=== PATIENT | male | born 1945 | race Caucasian/White ===

== ENCOUNTER 2016-06-12 18:34 | Emergency (ER) | payer BC, OTHER ==
[~2016-06-12] VITALS: Ht 177.8 cm; Wt 113.4 kg
[~2016-06-12 18:34] MED LIST: AMLO1CAP5 PO; CLOP75TA2 PO; GLIP10TA11 PO; HYDR25TA4 PO; INSU100V9 SQ; SIMV20TA6 PO; SITA1TAB10 PO; [UNRECOGNIZED DRUG - CODE] PO
[2016-06-12 18:43] VITALS: BP_SYST 155
--- NOTE | 2016-06-12 19:00 | NUR ---
Patient to ER bed 04 to gown for evaluation. Side rails up. Report given to Rn Sane.
--- NOTE | 2016-06-12 19:05 | NUR ---
MD Shabazz at bedside examining pt
[2016-06-12] MEDS ORDERED: ONDANSETRON 4 MG ODT TAB PO ONE (19:15)
[2016-06-12] MEDS ORDERED: methylPREDNISolone SOD SUCC/PF 62.5 MG/ML VIAL IM ONE (19:15)
[2016-06-12] MEDS ORDERED: MORPHINE SULFATE 10 MG/ML VIAL IM ONE (19:15)
--- NOTE | 2016-06-12 19:15 | NUR ---
Pt presents to ED with c/o lower back pain, started today, 10/14 per pt. Pt denies injury, ambulatory, gait stable. A&Ox4, denies SOB or chestpain, denies N/V/D. Will continue to monitor
[2016-06-12 20:15] VITALS: BP_SYST 142
--- NOTE | 2016-06-12 20:15 | NUR ---
Patient given written and verbal discharge instructions and verbalizes understanding. ER MD Shabazz discussed with patient the results and treatment provided. Patient in stable condition. ID arm band removed. Rx of motrin, norco, and prednisone given. Patient educated on pain management and to follow up with PMD. Pain Scale 0/10. Opportunity for questions provided and answered.
== END 2016-06-12 20:15 | disposition home or self-care (01) ==
LOC: SED 18:34
DX: M54.5 Low back pain (principal); I10 Essential (primary) hypertension; E11.9 Type 2 diabetes mellitus without complications; Z98.890 Other specified postprocedural states; Z85.9 Personal history of malignant neoplasm, unspecified; Z79.4 Long term (current) use of insulin
CPT/HCPCS: 96372; 99284; J2270; J2930; Q0162

== ENCOUNTER 2016-06-19 17:02 | Inpatient (IN) | payer OTHER, BC ==
[~2016-06-19] VITALS: Ht 177.8 cm; Wt 112.9 kg
[2016-06-19 17:02] VITALS: BP_SYST 145
[~2016-06-19 17:02] MED LIST changes: +DEXAMETHASONE SOD PHOSPHATE 4 MG/ML VIAL ONE; +KETAMINE HCL 500 MG/10 ML VIAL ONE; +KETOROLAC TROMETHAMINE 30 MG VIAL ONE; +MIDAZOLAM HCL 5 MG/5 ML VIAL ONE; +NS 1000 ML BAG IV ONE; +NS IRRIG SOLN 5000 ML IR ONE; +ONDANSETRON HCL 4 MG/2 ML VIAL ONE; +PROPOFOL 200MG/ 20ML VIAL (DIPRIVAN) IV ONE; +ROCURONIUM BROMIDE 10 MG/ML (ZEMURON) ONE; +SEVOFLURANE 15 MIN GAS INH ONE; +fentaNYL CITRATE 250 MCG/5 ML AMP ONE
[2016-06-19] MEDS ORDERED: NACL 0.9% 1,000 ML IV SCH (17:15)
[2016-06-19 17:44] LABS: CALCIUM 8.2 mg/dL (8.4-11.0); CREATININE 2.58 mg/dL (0.55-1.30); POTASSIUM 3.7 mmol/L (3.5-5.1)
[2016-06-19 17:52] LABS: ALBUMIN 2.2 g/dL (3.4-4.8); TOTAL BILIRUBIN 0.9 mg/dL (0.0-1.0)
[2016-06-19 17:57] LABS: HEMOGLOBIN 14.3 g/dL (14.0-18.0); MEAN CORPUSCULAR HEMOGLOBIN 29 pg (27-31); MEAN CORPUSCULAR HGB CONC 33 % (32-36); MEAN CORPUSCULAR VOLUME 88 fL (79.0-98.0); PLATELET COUNT (AUTO) 115 K/uL (130-430); RED BLOOD CELL COUNT(AUTO) 4.91 MIL/uL (4.2-6.2); RED CELL DISTRIBUTION WIDTH 13.6 % (9.0-15.0); WHITE BLOOD COUNT (AUTO) 23.8 K/uL (4.8-10.8)
[2016-06-19] MEDS ORDERED: cefTRIAXone 1 GM IVPB PREMIX 50 ML IV ONE (18:00)
[2016-06-19 18:06] LABS: INR 1.1 (0.80-1.20); PROTHROMBIN TIME 11.8 SECS (9.5-12.5)
[2016-06-19 18:29] LABS: BAND % (MANUAL) 38 % (0-6); BASOPHILS % (MANUAL) 0 % (0-2); EOSINOPHILS % (MANUAL) 0 % (0-7); LYMPHOCYTES % (MANUAL) 4 % (20-46); METAMYELOCYTES % 2 % (0-0); MONOCYTES % (MANUAL) 3 % (0-11); MYELOCYTES % 1 % (0-0)
[2016-06-19] MEDS ORDERED: INSU100V32 SUBCUT (18:29)
[2016-06-19] MEDS ORDERED: PRAV20TA PO (18:29)
[2016-06-19] MEDS ORDERED: METF-510 PO (18:29)
[2016-06-19] MEDS ORDERED: INSU100V11 SQ (18:54)
[2016-06-19] MEDS ORDERED: INSU100V PO (18:54)
[2016-06-19 19:00] VITALS: BP_SYST 155
[2016-06-19 19:04] LABS: BILIRUBIN,URINE NEGATIVE (NEGATIVE); BLOOD, URINE 1+ (NEGATIVE); CLARITY/URINE CLEAR (CLEAR); COLOR,URINE YELLOW (YELLOW); GLUCOSE,URINE 3+ (NEGATIVE); KETONES,URINE TRACE (NEGATIVE); LEUKOCYTE ESTERASE ,URINE TRACE (NEGATIVE); NITRITE, URINE NEGATIVE (NEGATIVE); PH,URINE 5.5 (5.0-8.0); PROTEIN URINE 1+ (NEGATIVE); UROBILINOGEN,URINE 0.2 (0.2-1.0)
[2016-06-19 19:20] LABS: BACTERIA,URINE FEW /HPF (None Seen); WBC,URINE 0-3 /HPF (0-3)
[2016-06-19 19:21] LABS: MUCUS,URINE None Seen /LPF (None Seen)
[2016-06-19 20:00] VITALS: BP_SYST 155
[2016-06-19] MEDS: NACL 0.9% 1,000 ML IV SCH (23:48)
[2016-06-20] VITALS (7 sets, daily range): BP systolic 117–155
[2016-06-20 06:06] LABS: BASOPHILS % (AUTO) 0.1 % (0.0-2.0); EOSINOPHILS # (AUTO) 0.1 K/uL (0.0-0.4); EOSINOPHILS % (AUTO) 0.3 % (0.0-4.0); HEMATOCRIT 36.8 % (36-54); HEMOGLOBIN 12.7 g/dL (14.0-18.0); LYMPHOCYTES # (AUTO) 1.2 K/uL (1.0-5.5); LYMPHOCYTES % (AUTO) 5.5 % (20.5-51.5); MEAN CORPUSCULAR HEMOGLOBIN 30 pg (27-31); MEAN CORPUSCULAR HGB CONC 35 % (32-36); MEAN CORPUSCULAR VOLUME 87 fL (79.0-98.0); MONOCYTES # (AUTO) 1.5 K/uL (0.0-1.0); MONOCYTES % (AUTO) 6.7 % (1.7-9.3); NEUTROPHILS # (AUTO) 19.4 K/uL (1.8-7.7); NEUTROPHILS % (AUTO) 87.4 % (40.0-70.0); PLATELET COUNT (AUTO) 95 K/uL (130-430); RED BLOOD CELL COUNT(AUTO) 4.23 MIL/uL (4.2-6.2); RED CELL DISTRIBUTION WIDTH 13.7 % (9.0-15.0); WHITE BLOOD COUNT (AUTO) 22.2 K/uL (4.8-10.8)
[2016-06-20 06:16] LABS: ALBUMIN 1.6 g/dL (3.4-4.8); CALCIUM 7.4 mg/dL (8.4-11.0); CREATININE 2.38 mg/dL (0.55-1.30); POTASSIUM 3.5 mmol/L (3.5-5.1); TOTAL BILIRUBIN 0.7 mg/dL (0.0-1.0); TOTAL PROTEIN, SERUM 5.7 g/dL (6.4-8.3)
[2016-06-20] MEDS: INSULIN ASPART 100 UNITS/ML, 10 ML VIAL SUBCUT SCH ×3 (06:22→17:00)
[2016-06-20] MEDS ORDERED: INSULIN LISPRO 30 UNIT SQ SCH (07:00)
[2016-06-20] MEDS: ASPIRIN 325 MG TABLET (ECOTRIN) PO SCH (08:22)
[2016-06-20] MEDS: NACL 0.9% 1,000 ML IV SCH ×2 (08:24→18:30)
[2016-06-20] MEDS ORDERED: BENAZEPRIL PO SCH (09:00)
[2016-06-20] MEDS ORDERED: BENAZEPRIL HCL 10 MG TABLET (LOTENSIN) PO SCH (09:00)
[2016-06-20] MEDS ORDERED: amLODIPine BESYLATE 5 MG TABLET PO SCH (09:00)
[2016-06-20] MEDS ORDERED: AMLODIPINE PO SCH (09:00)
[2016-06-20] MEDS ORDERED: HYDROcodone/ACETAMIN 10-325 MG TAB PO PRN (13:30)
[2016-06-20] MEDS ORDERED: COMMUNICATION ORDER XX ONE (15:00)
[2016-06-20] MEDS ORDERED: NORFLURANE/HFC 245FA 103.5 ML SPRAY TP ONE (15:15)
[2016-06-20 15:59] LABS: BODY FLUID CRYSTALS NO CRYSTALS SEEN (None Seen)
[2016-06-20] MEDS ORDERED: ROCURONIUM BROMIDE 10 MG/ML (ZEMURON) ONE (16:00)
[2016-06-20] MEDS ORDERED: MIDAZOLAM HCL 5 MG/5 ML VIAL ONE (16:00)
[2016-06-20] MEDS ORDERED: KETOROLAC TROMETHAMINE 30 MG VIAL ONE (16:00)
[2016-06-20] MEDS ORDERED: SEVOFLURANE 15 MIN GAS INH ONE (16:00)
[2016-06-20] MEDS ORDERED: PROPOFOL 200MG/ 20ML VIAL (DIPRIVAN) IV ONE (16:00)
[2016-06-20] MEDS ORDERED: NS IRRIG SOLN 5000 ML IR ONE (16:00)
[2016-06-20] MEDS ORDERED: fentaNYL CITRATE 250 MCG/5 ML AMP ONE (16:00)
[2016-06-20] MEDS ORDERED: DEXAMETHASONE SOD PHOSPHATE 4 MG/ML VIAL ONE (16:00)
[2016-06-20] MEDS ORDERED: KETAMINE HCL 500 MG/10 ML VIAL ONE (16:00)
[2016-06-20] MEDS ORDERED: ONDANSETRON HCL 4 MG/2 ML VIAL ONE (16:00)
[2016-06-20] MEDS ORDERED: VANCOMYCIN HCL 1,250 MG in NS 250 ML IV SCH (17:00)
[2016-06-20] MEDS ORDERED: LR 1,000 ML IV SCH ×2 (21:04→21:10)
[2016-06-20] MEDS ORDERED: HYDROmorphone 1 MG INJ. 1 MG/ML AMPUL IVP PRN ×2 (21:15)
[2016-06-20] MEDS ORDERED: HYDROmorphone 2 MG/ML VIAL IVP PRN ×4 (21:15)
[2016-06-20] MEDS ORDERED: MEPERIDINE HCL/PF 25 MG/ML DISP.SYRIN IVP PRN ×2 (21:15)
[2016-06-20] MEDS ORDERED: LevALBUTEROL HCL 1.25 MG/0.5 ML *CONC.* VIAL.NEB (XOPENEX CONC.) INH ONE (22:14)
[2016-06-20] MEDS ORDERED: LevALBUTEROL HCL 1.25 MG/0.5 ML *CONC.* VIAL.NEB (XOPENEX CONC.) INH SCH (22:15)
[2016-06-20] MEDS ORDERED: MILK OF MAGNESIA 30 ML UDC PO PRN (22:15)
[2016-06-21] MEDS: NACL 0.9% 1,000 ML IV SCH ×3 (02:16→23:32)
[2016-06-21 03:56] VITALS: BP_SYST 121
[2016-06-21] MEDS: INSULIN ASPART 100 UNITS/ML, 10 ML VIAL SUBCUT SCH ×3 (06:15→17:14)
[2016-06-21 07:03] LABS: BASOPHILS % (AUTO) 0.1 % (0.0-2.0); EOSINOPHILS % (AUTO) 0.1 % (0.0-4.0); HEMATOCRIT 37.9 % (36-54); HEMOGLOBIN 12.8 g/dL (14.0-18.0); LYMPHOCYTES # (AUTO) 0.7 K/uL (1.0-5.5); MEAN CORPUSCULAR HEMOGLOBIN 30 pg (27-31); MEAN CORPUSCULAR HGB CONC 34 % (32-36); MEAN CORPUSCULAR VOLUME 88 fL (79.0-98.0); MONOCYTES # (AUTO) 0.4 K/uL (0.0-1.0); MONOCYTES % (AUTO) 2.5 % (1.7-9.3); NEUTROPHILS # (AUTO) 16.3 K/uL (1.8-7.7); PLATELET COUNT (AUTO) 128 K/uL (130-430); RED BLOOD CELL COUNT(AUTO) 4.31 MIL/uL (4.2-6.2); RED CELL DISTRIBUTION WIDTH 14.3 % (9.0-15.0); WHITE BLOOD COUNT (AUTO) 17.4 K/uL (4.8-10.8)
[2016-06-21 07:18] LABS: ALBUMIN 1.8 g/dL (3.4-4.8); CALCIUM 7.2 mg/dL (8.4-11.0); CREATININE 2.68 mg/dL (0.55-1.30); PHOSPHORUS 4.7 mg/dL (2.7-4.5); TOTAL BILIRUBIN 0.5 mg/dL (0.0-1.0); TOTAL PROTEIN, SERUM 6.2 g/dL (6.4-8.3)
[2016-06-21 08:07] LABS: NEUTROPHILS % (AUTO) 93.3 % (40.0-70.0)
[2016-06-21 08:31] VITALS: BP_SYST 105
[2016-06-21] MEDS: ASCORBIC ACID 500 MG TABLET PO SCH ×2 (08:36→20:47)
[2016-06-21] MEDS: MULTIVITAMINS TAB 1 TABLET PO SCH (08:36)
[2016-06-21] MEDS: ASPIRIN 325 MG TABLET (ECOTRIN) PO SCH (08:36)
[2016-06-21 08:58] LABS: URINE SODIUM, RANDOM 25 mmol/L (40-220)
[2016-06-21] MEDS ORDERED: *CUBICIN 6 MG/KG Q48H/PHARMACY XX PRN (10:45)
[2016-06-21 12:00] VITALS: BP_SYST 113
[2016-06-21] MEDS ORDERED: NS IV SCH (12:00)
[2016-06-21] MEDS ORDERED: DAPTOMYCIN IV SCH (12:00)
[2016-06-21 15:22] VITALS: BP_SYST 114
[2016-06-21] MEDS: amLODIPine BESYLATE 10 MG TABLET PO SCH (17:08)
[2016-06-21] MEDS ORDERED: INSULIN ASPART 100 UNITS/ML, 10 ML VIAL SUBCUT ONE ×2 (17:30→21:15)
[2016-06-21 20:00] VITALS: BP_SYST 112
[2016-06-21] MEDS: SENNOSIDES 8.6 MG TABLET PO SCH (20:47)
[2016-06-22 00:03] VITALS: BP_SYST 141
[2016-06-22 03:56] VITALS: BP_SYST 118
[2016-06-22] MEDS: INSULIN ASPART 100 UNITS/ML, 10 ML VIAL SUBCUT SCH ×3 (06:01→17:30)
[2016-06-22] MEDS ORDERED: IOHEXOL 0 ML IV ONE (07:58)
[2016-06-22] MEDS ORDERED: LR 1,000 ML IV SCH (08:08)
[2016-06-22] MEDS ORDERED: HYDROmorphone 2 MG/ML VIAL IVP PRN ×2 (08:15)
[2016-06-22] MEDS ORDERED: HYDROmorphone 1 MG INJ. 1 MG/ML AMPUL IVP PRN (08:15)
[2016-06-22] MEDS ORDERED: LevALBUTEROL HCL 1.25 MG/0.5 ML *CONC.* VIAL.NEB (XOPENEX CONC.) INH ONE (08:15)
[2016-06-22] MEDS ORDERED: MEPERIDINE HCL/PF 25 MG/ML DISP.SYRIN IVP PRN (08:15)
[2016-06-22] MEDS: MULTIVITAMINS TAB 1 TABLET PO SCH (09:34)
[2016-06-22] MEDS: ASCORBIC ACID 500 MG TABLET PO SCH ×2 (09:34→21:28)
[2016-06-22] MEDS: amLODIPine BESYLATE 10 MG TABLET PO SCH (09:34)
[2016-06-22] MEDS: ASPIRIN 325 MG TABLET (ECOTRIN) PO SCH (09:47)
[2016-06-22 09:59] VITALS: BP_SYST 126
[2016-06-22 12:18] VITALS: BP_SYST 135
[2016-06-22 16:40] VITALS: BP_SYST 105
[2016-06-22 20:00] VITALS: BP_SYST 124
[2016-06-22] MEDS: NACL 0.9% 1,000 ML IV SCH (20:30)
[2016-06-22] MEDS: SENNOSIDES 8.6 MG TABLET PO SCH (21:28)
[2016-06-23 00:33] VITALS: BP_SYST 127
[2016-06-23] MEDS: NACL 0.9% 1,000 ML IV SCH ×3 (01:12→16:30)
[2016-06-23 04:43] VITALS: BP_SYST 150
[2016-06-23 06:21] LABS: BASOPHILS % (AUTO) 0.2 % (0.0-2.0); EOSINOPHILS % (AUTO) 0.2 % (0.0-4.0); HEMATOCRIT 36.8 % (36-54); HEMOGLOBIN 12.4 g/dL (14.0-18.0); LYMPHOCYTES # (AUTO) 1.6 K/uL (1.0-5.5); LYMPHOCYTES % (AUTO) 9.5 % (20.5-51.5); MEAN CORPUSCULAR HEMOGLOBIN 30 pg (27-31); MEAN CORPUSCULAR HGB CONC 34 % (32-36); MEAN CORPUSCULAR VOLUME 89 fL (79.0-98.0); MONOCYTES # (AUTO) 0.8 K/uL (0.0-1.0); MONOCYTES % (AUTO) 5.1 % (1.7-9.3); NEUTROPHILS # (AUTO) 14.1 K/uL (1.8-7.7); PLATELET COUNT (AUTO) 271 K/uL (130-430); RED BLOOD CELL COUNT(AUTO) 4.13 MIL/uL (4.2-6.2); RED CELL DISTRIBUTION WIDTH 14.6 % (9.0-15.0); WHITE BLOOD COUNT (AUTO) 16.5 K/uL (4.8-10.8)
[2016-06-23] MEDS: INSULIN ASPART 100 UNITS/ML, 10 ML VIAL SUBCUT SCH ×3 (06:34→17:37)
[2016-06-23 06:47] LABS: CALCIUM 8.4 mg/dL (8.4-11.0); CREATININE 1.76 mg/dL (0.55-1.30); POTASSIUM 4.6 mmol/L (3.5-5.1); TOTAL BILIRUBIN 0.6 mg/dL (0.0-1.0); TOTAL PROTEIN, SERUM 6.7 g/dL (6.4-8.3)
[2016-06-23 08:21] VITALS: BP_SYST 141
[2016-06-23] MEDS: amLODIPine BESYLATE 10 MG TABLET PO SCH (08:58)
[2016-06-23] MEDS: ASCORBIC ACID 500 MG TABLET PO SCH (08:58)
[2016-06-23] MEDS: MULTIVITAMINS TAB 1 TABLET PO SCH (08:58)
[2016-06-23] MEDS: ASPIRIN 325 MG TABLET (ECOTRIN) PO SCH (08:58)
[2016-06-23 11:42] VITALS: BP_SYST 141
[2016-06-23] MEDS: AMPICILLIN SODIUM 2 GM in NS 100 ML IV SCH ×2 (11:52→17:17)
[2016-06-23 15:30] VITALS: BP_SYST 128
[2016-06-23] MEDS ORDERED: MAGNESIUM SULFATE 50 ML IV ONE (16:45)
[2016-06-23 18:03] VITALS: BP_SYST 128
== END 2016-06-23 19:00 | DRG 559 ==
LOC: SED 17:02 → STU 18:54 → SMU 06-22 22:43
PROVIDERS: ADMIT Specialist; ATTEND Specialist
PROC: 0S9C40Z Drainage of Right Knee Joint with Drainage Device, Percutaneous Endoscopic Approach (ICD-10-PCS; 2016-06-20)
PROC: 0SBC4ZX Excision of Right Knee Joint, Percutaneous Endoscopic Approach, Diagnostic (ICD-10-PCS; 2016-06-20)
PROC: 0S9C3ZX Drainage of Right Knee Joint, Percutaneous Approach, Diagnostic (ICD-10-PCS; principal; 2016-06-20 20:30)
PROC: 0T778DZ Dilation of Left Ureter with Intraluminal Device, Via Natural or Artificial Opening Endoscopic (ICD-10-PCS; 2016-06-22)
DX: T84.53XA Infection and inflammatory reaction due to internal right knee prosthesis, initial encounter (principal); A40.9 Streptococcal sepsis, unspecified; E43 Unspecified severe protein-calorie malnutrition; N13.2 Hydronephrosis with renal and ureteral calculous obstruction; N17.9 Acute kidney failure, unspecified; M00.9 Pyogenic arthritis, unspecified; E11.65 Type 2 diabetes mellitus with hyperglycemia; E66.9 Obesity, unspecified; E78.2 Mixed hyperlipidemia; I25.10 Atherosclerotic heart disease of native coronary artery without angina pectoris; Z96.651 Presence of right artificial knee joint; Y83.1 Surgical operation with implant of artificial internal device as the cause of abnormal reaction of the patient, or of later complication, without mention of misadventure at the time of the procedure; N40.0 Benign prostatic hyperplasia without lower urinary tract symptoms; M65.9 Synovitis and tenosynovitis, unspecified; M25.461 Effusion, right knee; I12.9 Hypertensive chronic kidney disease with stage 1 through stage 4 chronic kidney disease, or unspecified chronic kidney disease; E11.22 Type 2 diabetes mellitus with diabetic chronic kidney disease; N18.2 Chronic kidney disease, stage 2 (mild); F17.200 Nicotine dependence, unspecified, uncomplicated; Z79.4 Long term (current) use of insulin; Q63.1 Lobulated, fused and horseshoe kidney; Z95.5 Presence of coronary angioplasty implant and graft; Z68.35 Body mass index [BMI] 35.0-35.9, adult; Y92.89 Other specified places as the place of occurrence of the external cause
CPT/HCPCS: 36415; 71010; 71020-TC; 73565; 74000-TC; 76000; 80053; 81000-TC; 82570-TC; 82962; 83605; 83735-TC; 83880; 83935-TC; 84100-TC; 84302-TC; 84484; 85007; 85025; 85027; 85379; 85610-TC; 85651-TC; 85730-TC; 86140; 87040-TC; 87070-TC; 87075-TC; 87081; 87086; 87186-TC; 87205-TC; 89051-TC; 89060-TC; 93005; 94010; 94640; 96365; 99285; C1769; C2625; J0290; J0696; J0878; J1100; J1815; J1885; J2250; J2405; J2704; J3010; J3370; J7030; J7050; J7060; Q9967

== ENCOUNTER 2019-08-29 11:17 | Inpatient (IN) | payer OTHER, BC ==
[~2019-08-29] VITALS: Ht 177.8 cm; Wt 119.7 kg
[~2019-08-29 11:17] MED LIST changes: -AMLO1CAP5 PO; +AMLO5TAB4 PO; +ASPI-1153 PO; -CLOP75TA2 PO; +CYAN100010 PO; -DEXAMETHASONE SOD PHOSPHATE 4 MG/ML VIAL ONE; +FLUC200T PO; -GLIP10TA11 PO; -INSU100V9 SQ; +INSU500I SQ; -KETAMINE HCL 500 MG/10 ML VIAL ONE; -KETOROLAC TROMETHAMINE 30 MG VIAL ONE; -MIDAZOLAM HCL 5 MG/5 ML VIAL ONE; -NS 1000 ML BAG IV ONE; -NS IRRIG SOLN 5000 ML IR ONE; -ONDANSETRON HCL 4 MG/2 ML VIAL ONE; +OXYC-133 PO; +PRAV20TA PO; -PROPOFOL 200MG/ 20ML VIAL (DIPRIVAN) IV ONE; -ROCURONIUM BROMIDE 10 MG/ML (ZEMURON) ONE; -SEVOFLURANE 15 MIN GAS INH ONE; -SIMV20TA6 PO; -SITA1TAB10 PO; +VITD2000 PO; -[UNRECOGNIZED DRUG - CODE] PO; -fentaNYL CITRATE 250 MCG/5 ML AMP ONE
[2019-08-29 11:31] VITALS: BP_SYST 145
--- NOTE | 2019-08-29 11:50 | NUR ---
BROUGHT BACK TO BED #1 AND REPORT GIVEN TO BRANDON
--- NOTE | 2019-08-29 12:01 | NUR ---
DR SOTO AT BEDSIDE FOR EVALUATION
--- NOTE | 2019-08-29 12:05 | NUR ---
Chastity martin in [facility] - 08/29/19 at 1542 by SDEDTD XENA LEWIS at bedside examining patient.
--- NOTE | 2019-08-29 12:05 | NUR ---
Pt came to ER for facial swelling and L pain. Pt resting in gurney, no pain at this time, AO4, face does not appear swollen upon assessment.
[2019-08-29 12:50] LABS: BASOPHILS % (AUTO) 0.3 % (0.0-2.0); EOSINOPHILS # (AUTO) 0.1 K/uL (0.0-0.4); EOSINOPHILS % (AUTO) 0.4 % (0.0-4.0); HEMATOCRIT 42.5 % (36-54); HEMOGLOBIN 13.7 g/dL (14.0-18.0); LYMPHOCYTES # (AUTO) 1.4 K/uL (1.0-5.5); LYMPHOCYTES % (AUTO) 11.3 % (20.5-51.5); MEAN CORPUSCULAR HEMOGLOBIN 30 pg (27-31); MEAN CORPUSCULAR HGB CONC 32 % (32-36); MEAN CORPUSCULAR VOLUME 92 fL (79.0-98.0); MONOCYTES # (AUTO) 1.1 K/uL (0.0-1.0); MONOCYTES % (AUTO) 9.3 % (1.7-9.3); NEUTROPHILS # (AUTO) 9.5 K/uL (1.8-7.7); NEUTROPHILS % (AUTO) 78.7 % (40.0-70.0); PLATELET COUNT (AUTO) 194 K/uL (130-430); RED BLOOD CELL COUNT(AUTO) 4.64 MIL/uL (4.2-6.2); RED CELL DISTRIBUTION WIDTH 14.8 % (9.0-15.0)
[2019-08-29 13:00] LABS: ANION GAP 12 (5-15); CALCIUM 8.5 mg/dL (8.4-11.0); CHLORIDE 97 mmol/L (98-107); CREATININE 2.62 mg/dL (0.55-1.30); POTASSIUM 4.5 mmol/L (3.5-5.1); SODIUM SERUM 132 mmol/L (136-145); UREA NITROGEN, BLOOD 43 mg/dL (8-21)
[2019-08-29] MEDS ORDERED: IBUPROFEN 600 MG TABLET PO ONE (13:00)
[2019-08-29 13:16] LABS: ALANINE AMINOTRANSFERASE 30 U/L (12-78); ALBUMIN 3.4 g/dL (3.4-4.8); ASPARTATE AMINOTRANSFERASE 21 U/L (10-37); TOTAL BILIRUBIN 0.4 mg/dL (0.0-1.0)
[2019-08-29 13:20] LABS: GLUCOSE 405 mg/dL (70-99)
[2019-08-29] MEDS ORDERED: INSULIN REGULAR, HUMAN 10 UNITS/0.1 ML INJ IVP ONE (13:30)
[2019-08-29] MEDS ORDERED: NACL 0.9% 1,000 ML IV ONE (13:30)
[2019-08-29] MEDS ORDERED: LEVOFLOXACIN 500 MG/D5W 100 ML IV ONE (13:45)
[2019-08-29] MEDS ORDERED: NACL 0.9% 2,000 ML IV ONE (14:00)
[2019-08-29] MEDS ORDERED: OXYCODONE/ACETAMINOPHEN *10*mg/325 mg TABLET PO PRN (14:15)
[2019-08-29] MEDS ORDERED: DEXTROSE 50% JECT 50 ML DISP.SYRIN IVP PRN (14:15)
[2019-08-29 14:34] LABS: BILIRUBIN,URINE NEGATIVE (NEGATIVE); COLOR,URINE YELLOW (YELLOW); GLUCOSE,URINE TRACE (NEGATIVE); KETONES,URINE NEGATIVE (NEGATIVE); LEUKOCYTE ESTERASE ,URINE NEGATIVE (NEGATIVE); NITRITE, URINE NEGATIVE (NEGATIVE); PH,URINE 5.5 (5.0-8.0); PROTEIN URINE NEGATIVE (NEGATIVE); UROBILINOGEN,URINE 0.2 (0.2-1.0)
[2019-08-29] MEDS ORDERED: RIVA10TA PO (14:36)
[2019-08-29] MEDS ORDERED: NOR10 PO (14:36)
[2019-08-29 14:40] LABS: BLOOD, URINE TRACE (NEGATIVE); CLARITY/URINE SLIGHTLY HAZY (CLEAR)
--- NOTE | 2019-08-29 14:53 | NUR ---
Patient will be admitted to care of DR LEAL. Admitted to MS unit. Will go to room 116B. Belongings list completed. Complete and up to date summary report printed. SBAR report to be given at bedside with opportunity for questions.
[2019-08-29] MEDS ORDERED: FLUCONAZOLE 100 mg/ NS 50 ML IV SCH (15:00)
--- NOTE | 2019-08-29 15:00 | NUR ---
ADMISSION NOTE Received patient from ER via deangelo, received report from ER/ RN. Patient admitted with diagnosis of SEPSIS/CELLULITIS . Patient oriented to hospital routine, call light, toileting and safety-patient verbalized understanding.
--- NOTE | 2019-08-29 15:06 | NUR ---
CONSULTATION PAGED REASON FOR CONSULTATION:SEPSIS WAS CONSULT CALLED?Y PERSON WHO WAS NOTIFIED:CAROLINE CONSULTING PHYSICIAN:DENIA CUMMINGS PRODUCTION MATERIAL COORDINATOR SPECIALTY:INFECTIOUS DISEASE PRODUCTION MATERIAL COORDINATOR PHONE NUMBER:[phone] ORDERING PHYSICIAN:PAMELA CHE
[2019-08-29 15:16] VITALS: BP_SYST 140
[2019-08-29] MEDS: NACL 0.9% 1,000 ML IV SCH ×2 (15:28→23:40)
[2019-08-29] MEDS: INSULIN REGULAR, HUMAN 100 UNITS/ML, 10 ML VIAL (humuLIN R) SUBCUT PRN ×2 (16:33→22:26)
[2019-08-29] MEDS ORDERED: ACYCLOVIR 400 MG TABLET PO ONE (16:45)
[2019-08-29] MEDS ORDERED: TAMSULOSIN HCL 0.4 MG CAP PO ONE (16:45)
[2019-08-29] MEDS ORDERED: ZOLPIDEM TARTRATE 5 MG TABLET PO PRN (17:00)
[2019-08-29] MEDS ORDERED: ACETAMINOPHEN 325 MG TABLET PO PRN (17:00)
[2019-08-29] MEDS ORDERED: RIVAROXABAN 15 MG TABLET PO SCH (18:00)
[2019-08-29] MEDS: PIPERACILLIN/TAZO 2.25G/DEX-IS 50 ML IV SCH ×2 (18:57→23:40)
[2019-08-29 20:00] VITALS: BP_SYST 120
[2019-08-29] MEDS: LACTOBACILLUS RHAMNOSUS GG 1 CAP CAPSULE PO SCH (21:00)
[2019-08-29] MEDS ORDERED: ENOXAPARIN SODIUM 30 MG/0.3 ML SYRINGE SUBCUT SCH (21:00)
[2019-08-29] MEDS: DOCUSATE SODIUM 250 MG CAPSULE PO SCH (21:00)
[2019-08-29 21:17] LABS: BACTERIA,URINE FEW /HPF (None Seen); MUCUS,URINE 1+ /LPF (None Seen); RBC,URINE 0-3 /HPF (0-3)
[2019-08-29] MEDS: ACYCLOVIR 400 MG TABLET PO SCH (22:11)
[2019-08-30] VITALS: BP_SYST 124
[2019-08-30] MEDS: MORPHINE 4 MG/ML INJ. SYRINGE IVP PRN ×2 (00:24→06:17)
[2019-08-30] MEDS: PIPERACILLIN/TAZO 2.25G/DEX-IS 50 ML IV SCH ×2 (06:05→11:37)
[2019-08-30] MEDS: ACYCLOVIR 400 MG TABLET PO SCH ×2 (06:05→13:57)
[2019-08-30] MEDS: INSULIN REGULAR, HUMAN 100 UNITS/ML, 10 ML VIAL (humuLIN R) SUBCUT PRN ×2 (06:11→11:35)
[2019-08-30 07:15] LABS: BASOPHILS % (AUTO) 0.3 % (0.0-2.0); EOSINOPHILS # (AUTO) 0.1 K/uL (0.0-0.4); EOSINOPHILS % (AUTO) 0.9 % (0.0-4.0); HEMATOCRIT 37.5 % (36-54); HEMOGLOBIN 12.4 g/dL (14.0-18.0); LYMPHOCYTES # (AUTO) 1.1 K/uL (1.0-5.5); LYMPHOCYTES % (AUTO) 10.6 % (20.5-51.5); MEAN CORPUSCULAR HEMOGLOBIN 30 pg (27-31); MEAN CORPUSCULAR HGB CONC 33 % (32-36); MEAN CORPUSCULAR VOLUME 92 fL (79.0-98.0); MONOCYTES # (AUTO) 1.1 K/uL (0.0-1.0); MONOCYTES % (AUTO) 10.8 % (1.7-9.3); NEUTROPHILS # (AUTO) 7.8 K/uL (1.8-7.7); NEUTROPHILS % (AUTO) 77.4 % (40.0-70.0); PLATELET COUNT (AUTO) 156 K/uL (130-430); RED BLOOD CELL COUNT(AUTO) 4.07 MIL/uL (4.2-6.2); RED CELL DISTRIBUTION WIDTH 14.4 % (9.0-15.0); WHITE BLOOD COUNT (AUTO) 10.1 K/uL (4.8-10.8)
--- NOTE | 2019-08-30 07:40 | NUR ---
REPORT RECEIVED FROM MARY MORRISON. PT IS AAOX4. LEFT FACIAL SWELLING OBSERVED AREA IS RED AND WARM TO THE TOUCH. IV IS ON THE LEFT HAND 22G RUNNING NS @100. CALL LIGHT IS WITHIN REACH.
[2019-08-30 07:50] LABS: ALANINE AMINOTRANSFERASE 23 U/L (12-78); ALBUMIN 2.8 g/dL (3.4-4.8); ANION GAP 9 (5-15); ASPARTATE AMINOTRANSFERASE 18 U/L (10-37); CALCIUM 8.1 mg/dL (8.4-11.0); CHLORIDE 97 mmol/L (98-107); CREATININE 2.13 mg/dL (0.55-1.30); FREE T4 (FREE THYROXINE) 1.1 ng/dl (0.8-1.5); POTASSIUM 4.4 mmol/L (3.5-5.1); SODIUM SERUM 130 mmol/L (136-145); THYROID STIMULATING HORMONE 2.14 uIu/mL (0.36-3.74); TOTAL BILIRUBIN 0.5 mg/dL (0.0-1.0); UREA NITROGEN, BLOOD 40 mg/dL (8-21)
[2019-08-30 07:59] LABS: GLUCOSE 437 mg/dL (70-99)
[2019-08-30 08:00] VITALS: BP_SYST 113
[2019-08-30] MEDS ORDERED: INSULIN REGULAR, HUMAN 100 UNITS/ML, 10 ML VIAL SUBCUT ONE ×2 (08:30→11:15)
--- NOTE | 2019-08-30 08:30 | NUR ---
VENOUS BS IS 430. DR. LEAL MADE AWARE. ORDERS RECEIVED
[2019-08-30] MEDS: DOCUSATE SODIUM 250 MG CAPSULE PO SCH (08:44)
[2019-08-30] MEDS: LACTOBACILLUS RHAMNOSUS GG 1 CAP CAPSULE PO SCH (08:45)
[2019-08-30] MEDS ORDERED: CHOLECALCIFEROL (VITAMIN D3) 2,000 UNIT TABLET PO SCH (09:00)
[2019-08-30] MEDS ORDERED: amLODIPine BESYLATE 5 MG TABLET PO SCH (09:00)
[2019-08-30] MEDS ORDERED: CYANOCOBALAMIN 1000 mCg TABLET PO SCH (09:00)
[2019-08-30] MEDS ORDERED: TAMSULOSIN HCL 0.4 MG CAP PO SCH (09:00)
[2019-08-30] MEDS ORDERED: ASPIRIN 81 MG TABLET(ECOTRIN) PO SCH (09:00)
[2019-08-30] MEDS ORDERED: ATORVASTATIN 10 MG TABLET PO SCH (09:00)
[2019-08-30] MEDS ORDERED: FLUCONAZOLE 200 MG TABLET (DIFLUCAN) PO SCH (09:00)
[2019-08-30] MEDS: NACL 0.9% 1,000 ML IV SCH (10:21)
--- NOTE | 2019-08-30 10:39 | NUR ---
Nutrition Update Suhail Scale 17 noted. Pt admitted for sepsis, cellulitis Diet: [facility] BMI: 37.9 kg/m2 RD to follow per nutrition care standards.
[2019-08-30 11:17] LABS: BILIRUBIN,URINE NEGATIVE (NEGATIVE); BLOOD, URINE TRACE (NEGATIVE); CLARITY/URINE CLEAR (CLEAR); COLOR,URINE YELLOW (YELLOW); GLUCOSE,URINE 2+ (NEGATIVE); KETONES,URINE NEGATIVE (NEGATIVE); LEUKOCYTE ESTERASE ,URINE NEGATIVE (NEGATIVE); NITRITE, URINE NEGATIVE (NEGATIVE); PH,URINE 5.5 (5.0-8.0); PROTEIN URINE NEGATIVE (NEGATIVE); UROBILINOGEN,URINE 0.2 (0.2-1.0)
[2019-08-30 11:23] LABS: BACTERIA,URINE FEW /HPF (None Seen); RBC,URINE 0-3 /HPF (0-3); WBC,URINE 0-3 /HPF (0-3)
--- NOTE | 2019-08-30 11:30 | NUR ---
CURRENT BS IS 412. DR. LEAL MADE AWARE IN THE NURSES STATION. 30 UNITS OF INSULIN GIVEN. WILL REASSESS
[2019-08-30 12:30] VITALS: BP_SYST 114
--- NOTE | 2019-08-30 12:36 | NUR ---
SPOKE W/ DR. BYRNE. IS IN THE HOSPITAL AND WILL SEE THE PT MOMENTARILY
--- NOTE | 2019-08-30 12:45 | NUR ---
Keith LIMON IS W/ THE PT AT THE BEDSIDE
[2019-08-30] MEDS ORDERED: cefTRIAXone 1 GM in D5W 50 ML IV SCH (14:00)
--- NOTE | 2019-08-30 14:24 | NUR ---
AMA: Patient does not wish to proceed with medical care recommended by AND Keith LIMON. Patient given information related to possible complications, up to and including , which could occur as a result of leaving hospital at this time. Patient verbalizes understanding of risks involved leaving against medical advice. Patient has signed AMA form. PT REFUSED TO HAVE BS RECHECKED
[2019-08-30] MEDS ORDERED: LINEZOLID 300 ML IV SCH (15:00)
--- NOTE | 2019-08-30 15:37 | NUR ---
Pipe Coverer: met with pt. to conduct a DCPA. RN ER went to pts. room to meet with him. His bed was empty so RN ER spoke to Ric Fenton who informed her that pt. left AMA around 2;20pm. RN ER thanked her and informed the PAULINE Epps.
[2019-08-30] MEDS ORDERED: INSULIN GLARGINE 100 UNITS/ML 10 ML VIAL SUBCUT SCH (21:00)
== END 2019-08-30 14:20 | disposition left against medical advice (07) | DRG 871 ==
LOC: SED 11:17 → SMU 13:54
PROVIDERS: ADMIT Internal Medicine; ATTEND Internal Medicine
DX: A41.9 Sepsis, unspecified organism (principal); N17.0 Acute kidney failure with tubular necrosis; E87.2 Acidosis; L03.211 Cellulitis of face; N39.0 Urinary tract infection, site not specified; B02.9 Zoster without complications; E11.65 Type 2 diabetes mellitus with hyperglycemia; E66.9 Obesity, unspecified; E11.22 Type 2 diabetes mellitus with diabetic chronic kidney disease; I12.9 Hypertensive chronic kidney disease with stage 1 through stage 4 chronic kidney disease, or unspecified chronic kidney disease; N18.9 Chronic kidney disease, unspecified; E78.5 Hyperlipidemia, unspecified; N40.0 Benign prostatic hyperplasia without lower urinary tract symptoms; Z86.711 Personal history of pulmonary embolism; Z86.718 Personal history of other venous thrombosis and embolism; Z88.1 Allergy status to other antibiotic agents; Z79.01 Long term (current) use of anticoagulants; Z79.82 Long term (current) use of aspirin; Z79.4 Long term (current) use of insulin; Z79.899 Other long term (current) drug therapy; Z85.9 Personal history of malignant neoplasm, unspecified; I25.2 Old myocardial infarction
CPT/HCPCS: 36415; 70486-TC; 71045; 76770; 80053; 81000-TC; 82962; 83036; 83605; 84439; 84443-TC; 85025; 87040-TC; 87086; 96365; 96375; 99291; J0696; J1450; J1815; J1956; J2020; J2270; J2543; J7030; J7060

== ENCOUNTER 2021-03-10 11:06 | Emergency (ER) | payer OTHER, BC ==
[~2021-03-10] VITALS: Ht 177.8 cm; Wt 78.9 kg
[~2021-03-10 11:06] MED LIST changes: -AMLO5TAB4 PO; -ASPI-1153 PO; +ASPI-1393 PO; -FLUC200T PO; +NOR10 PO; +RIVA10TA PO
[2021-03-10 11:19] VITALS: BP_SYST 143
--- NOTE | 2021-03-10 11:30 | NUR ---
Pt placed in tent at this time
--- NOTE | 2021-03-10 11:32 | NUR ---
Pt brought by self, A&Ox4, pt presents to ER with cough/ congestion and bodyaches, O2 95%, skin pink and warm, cap refill <3, VSS, respirations even and unlabored.
[2021-03-10] MEDS ORDERED: ONDA-8 TL (12:29)
[2021-03-10 13:00] VITALS: BP_SYST 125
--- NOTE | 2021-03-10 13:00 | NUR ---
Patient given written and verbal discharge instructions and verbalizes understanding. ER MD discussed with patient the results and treatment provided. Patient in stable condition. ID arm band removed. Rx of Zofran given. Patient educated on pain management and to follow up with PMD. Pain Scale 2/10. Opportunity for questions provided and answered. Medication side effect fact sheet provided.
== END 2021-03-10 13:00 | disposition home or self-care (01) ==
LOC: SED 11:06
DX: U07.1 COVID-19 (principal); E11.9 Type 2 diabetes mellitus without complications; I10 Essential (primary) hypertension; Z88.1 Allergy status to other antibiotic agents
CPT/HCPCS: 36415; 71045; 93005; 99285

== ENCOUNTER 2021-12-15 10:40 | Emergency (ER) | payer BC, OTHER ==
[~2021-12-15] VITALS: Ht 177.8 cm; Wt 122.5 kg
[~2021-12-15 10:40] MED LIST changes: +ONDA-8 TL
[2021-12-15 11:00] VITALS: BP_SYST 105
[2021-12-15] MEDS: HYDROcodone/ACETAMIN 5-325 MG TAB (NORCO/ VICODIN) PO ONE (11:30)
[2021-12-15] MEDS ORDERED: TRAM50TA PO (12:51)
[2021-12-15] MEDS ORDERED: CEPH-548 PO (12:51)
[2021-12-15 13:25] VITALS: BP_SYST 105
[2021-12-15] MEDS: LIDOCAINE 1% 10 MG/ML, 20 ML MDV INJ ONE (13:31)
== END 2021-12-15 13:25 | disposition home or self-care (01) ==
LOC: SED 10:40
DX: L02.416 Cutaneous abscess of left lower limb (principal); R22.41 Localized swelling, mass and lump, right lower limb; E11.9 Type 2 diabetes mellitus without complications; I10 Essential (primary) hypertension; Z79.4 Long term (current) use of insulin; Z88.1 Allergy status to other antibiotic agents; Z79.899 Other long term (current) drug therapy
CPT/HCPCS: 99284; 10060; 82962; 73590; J2001

== ENCOUNTER 2021-12-17 09:04 | Emergency (ER) | payer BC, OTHER ==
[~2021-12-17] VITALS: Ht 177.8 cm; Wt 108.9 kg
[~2021-12-17 09:04] MED LIST changes: +CEPH-548 PO; +TRAM50TA PO
--- NOTE | 2021-12-17 09:04 | NUR ---
BROUGHT BACK TO BED #6 AND TRIAGED. REPORT GIVEN TO KAYLEEN
[2021-12-17 09:05] VITALS: BP_SYST 114
--- NOTE | 2021-12-17 09:10 | NUR ---
Pt bib self from home to ER CC left leg wound. wheeping with clear fluids to the lateral calf. afebrile denies pain aaox4. denies sob pedal pulses present <3sec cap refill.
--- NOTE | 2021-12-17 09:15 | NUR ---
ER at bedside examining patient.
[2021-12-17] MEDS ORDERED: HYDROcodone/ACETAMIN 5-325 MG TAB (NORCO/ VICODIN) PO ONE (09:30)
[2021-12-17] MEDS ORDERED: SULF1TAB48 PO (09:31)
--- NOTE | 2021-12-17 09:44 | NUR ---
Patient given written and verbal discharge instructions and verbalizes understanding. ER MD discussed with patient the results and treatment provided. Patient in stable condition. ID arm band removed. Rx of Bactrim given. Patient educated on pain management and to follow up with PMD. Opportunity for questions provided and answered. Medication side effect fact sheet provided.
--- NOTE | 2021-12-17 09:53 | NUR ---
Note mario in EDM - 12/17/21 at 0958 by HANG Pt bib self from home to ER CC left leg wound. wheeping with clear fluids to the lateral calf. afebrile denies pain aaox4. denies sob pedal pulses present <3sec cap refill.
== END 2021-12-17 09:44 | disposition home or self-care (01) ==
LOC: SED 09:04
DX: L03.116 Cellulitis of left lower limb (principal); R22.42 Localized swelling, mass and lump, left lower limb; E11.9 Type 2 diabetes mellitus without complications; I10 Essential (primary) hypertension; Z88.1 Allergy status to other antibiotic agents; Z79.899 Other long term (current) drug therapy
CPT/HCPCS: 99283

== ENCOUNTER 2022-05-08 10:29 | Inpatient (IN) | payer OTHER, BC ==
[~2022-05-08] VITALS: Ht 177.8 cm; Wt 112.5 kg
[~2022-05-08 10:29] MED LIST changes: +SULF1TAB48 PO
[2022-05-08 10:42] VITALS: BP_SYST 115
[2022-05-08 11:30] LABS: HEMATOCRIT 46.2 % (36-54); HEMOGLOBIN 14.5 g/dL (14.0-18.0); MEAN CORPUSCULAR HEMOGLOBIN 31 pg (27-31); MEAN CORPUSCULAR HGB CONC 31 % (32-36); MEAN CORPUSCULAR VOLUME 98 fL (79.0-98.0); PLATELET COUNT (AUTO) 163 K/uL (130-430); RED BLOOD CELL COUNT(AUTO) 4.74 MIL/uL (4.2-6.2); RED CELL DISTRIBUTION WIDTH 14.8 % (9.0-15.0)
[2022-05-08 11:40] LABS: WHITE BLOOD COUNT (AUTO) 22.4 K/uL (4.8-10.8)
[2022-05-08 12:36] LABS: ATYPICAL LYMPHOCYTES % 0 % (0-0); BAND % (MANUAL) 10 % (0-6); BASOPHILS % (MANUAL) 0 % (0-2); EOSINOPHILS % (MANUAL) 0 % (0-7); LYMPHOCYTES % (MANUAL) 7 % (20-46); MONOCYTES % (MANUAL) 7 % (0-11)
[2022-05-08 12:49] LABS: ALANINE AMINOTRANSFERASE 45 U/L (12-78); ALBUMIN 1.4 g/dL (3.4-4.8); ASPARTATE AMINOTRANSFERASE 25 U/L (10-37); TOTAL BILIRUBIN 0.5 mg/dL (0.0-1.0)
[2022-05-08 12:52] LABS: ANION GAP 21 (5-15); CHLORIDE 82 mmol/L (98-107)
[2022-05-08 12:53] LABS: CALCIUM 9.1 mg/dL (8.4-11.0); CREATININE 3.25 mg/dL (0.55-1.30); UREA NITROGEN, BLOOD 36 mg/dL (8-21)
[2022-05-08 12:57] LABS: GLUCOSE 502 mg/dL (70-99)
[2022-05-08 14:53] LABS: BILIRUBIN,URINE NEGATIVE (NEGATIVE); BLOOD, URINE 3+ (NEGATIVE); CLARITY/URINE CLEAR (CLEAR); COLOR,URINE YELLOW (YELLOW); GLUCOSE,URINE 3+ (NEGATIVE); KETONES,URINE 1+ (NEGATIVE); LEUKOCYTE ESTERASE ,URINE NEGATIVE (NEGATIVE); NITRITE, URINE NEGATIVE (NEGATIVE); PH,URINE 5.5 (5.0-8.0); PROTEIN URINE NEGATIVE (NEGATIVE); UROBILINOGEN,URINE 0.2 (0.2-1.0)
[2022-05-08] MEDS ORDERED: PIPERACILLIN/TAZOBACTAM 3.375 GM/VIAL (ZOSYN) IV ONE ×2 (14:53→22:59)
[2022-05-08] MEDS: PIPERACILLIN/TAZO 3.375 GM in NS 50 ML IV SCH ×2 (15:00→23:07)
[2022-05-08 15:07] LABS: BACTERIA,URINE FEW /HPF (None Seen); MUCUS,URINE None Seen /LPF (None Seen); RBC,URINE NONE SEEN /HPF (0-3); WBC,URINE 0-3 /HPF (0-3)
[2022-05-08] MEDS ORDERED: RIVA10TA PO (15:25)
[2022-05-08] MEDS ORDERED: ASPI-1155 PO (15:25)
[2022-05-08] MEDS ORDERED: HYDR25TA4 PO (15:25)
[2022-05-08] MEDS ORDERED: BENA-6 PO (15:25)
[2022-05-08] MEDS ORDERED: PRAV20TA59 PO (15:25)
[2022-05-08] MEDS ORDERED: DULA1.5P SQ (15:25)
[2022-05-08] MEDS ORDERED: INSU100V7 SUBCUT (15:25)
[2022-05-08] MEDS: traMADol HCL HCL 50 MG TABLET (ULTRAM) PO PRN (20:09)
[2022-05-09 08:09] LABS: BASOPHILS % (AUTO) 0.2 % (0.0-2.0); HEMATOCRIT 41.9 % (36-54); HEMOGLOBIN 13.9 g/dL (14.0-18.0); LYMPHOCYTES # (AUTO) 0.6 K/uL (1.0-5.5); LYMPHOCYTES % (AUTO) 3.5 % (20.5-51.5); MEAN CORPUSCULAR HEMOGLOBIN 31 pg (27-31); MEAN CORPUSCULAR HGB CONC 33 % (32-36); MEAN CORPUSCULAR VOLUME 93 fL (79.0-98.0); MONOCYTES # (AUTO) 1.1 K/uL (0.0-1.0); NEUTROPHILS # (AUTO) 14.4 K/uL (1.8-7.7); NEUTROPHILS % (AUTO) 89.3 % (40.0-70.0); PLATELET COUNT (AUTO) 111 K/uL (130-430); RED CELL DISTRIBUTION WIDTH 14.1 % (9.0-15.0)
[2022-05-09 08:19] LABS: WHITE BLOOD COUNT (AUTO) 16.1 K/uL (4.8-10.8)
[2022-05-09 08:58] LABS: ANION GAP 14 (5-15); CALCIUM 8.4 mg/dL (8.4-11.0); CHLORIDE 88 mmol/L (98-107); CREATININE 2.05 mg/dL (0.55-1.30); UREA NITROGEN, BLOOD 40 mg/dL (8-21)
[2022-05-09 09:02] LABS: ALANINE AMINOTRANSFERASE 72 U/L (12-78); ALBUMIN 2.5 g/dL (3.4-4.8); ASPARTATE AMINOTRANSFERASE 77 U/L (10-37); TOTAL BILIRUBIN 0.7 mg/dL (0.0-1.0)
[2022-05-09 09:07] LABS: GLUCOSE 518 mg/dL (70-99)
[2022-05-09] MEDS ORDERED: INSULIN REGULAR, HUMAN 100 UNITS/ML, 3 ML VIAL SUBCUT ONE (09:30)
[2022-05-09] MEDS: PIPERACILLIN/TAZO 3.375 GM in NS 50 ML IV SCH ×3 (09:59→22:46)
[2022-05-09] MEDS ORDERED: INSULIN REGULAR, HUMAN 10 UNITS/0.1 ML, 3 ML VIAL ONE ×2 (10:14→21:23)
[2022-05-09] MEDS: INSULIN REGULAR, HUMAN 100 UNITS/ML, 3 ML VIAL (humuLIN R) SUBCUT PRN ×3 (12:37→21:32)
[2022-05-09] MEDS ORDERED: PIPERACILLIN/TAZOBACTAM 3.375 GM/VIAL (ZOSYN) IV ONE (15:08)
[2022-05-09] MEDS ORDERED: INSULIN GLARGINE 100 UNITS/ML, 10 ML VIAL ONE (21:22)
[2022-05-09] MEDS: INSULIN GLARGINE 100 UNITS/ML, 10 ML VIAL SUBCUT SCH (21:34)
[2022-05-09 23:24] VITALS: BP_SYST 139
[2022-05-10] VITALS: BP_SYST 139
[2022-05-10] MEDS ORDERED: IPRATROPIUM/ALBUTEROL SULFATE 3 ML AMPUL.NEB (DUONEB) INH PRN
[2022-05-10] MEDS ORDERED: ACETAMINOPHEN 325 MG TABLET PO PRN (00:30)
[2022-05-10] MEDS: INSULIN REGULAR, HUMAN 100 UNITS/ML, 3 ML VIAL (humuLIN R) SUBCUT PRN ×4 (00:48→17:06)
[2022-05-10] MEDS: IPRATROPIUM/ALBUTEROL SULFATE 3 ML AMPUL.NEB (DUONEB) INH SCH ×4 (01:00→19:58)
[2022-05-10] MEDS: traMADol HCL HCL 50 MG TABLET (ULTRAM) PO PRN (02:59)
[2022-05-10 05:33] VITALS: BP_SYST 139
[2022-05-10 05:46] LABS: BASOPHILS % (AUTO) 0.2 % (0.0-2.0); HEMATOCRIT 42.9 % (36-54); HEMOGLOBIN 14.4 g/dL (14.0-18.0); LYMPHOCYTES # (AUTO) 0.7 K/uL (1.0-5.5); LYMPHOCYTES % (AUTO) 4.2 % (20.5-51.5); MEAN CORPUSCULAR HEMOGLOBIN 31 pg (27-31); MEAN CORPUSCULAR HGB CONC 34 % (32-36); MEAN CORPUSCULAR VOLUME 92 fL (79.0-98.0); MONOCYTES # (AUTO) 1.4 K/uL (0.0-1.0); MONOCYTES % (AUTO) 8.8 % (1.7-9.3); NEUTROPHILS # (AUTO) 13.9 K/uL (1.8-7.7); NEUTROPHILS % (AUTO) 86.8 % (40.0-70.0); PLATELET COUNT (AUTO) 130 K/uL (130-430); RED BLOOD CELL COUNT(AUTO) 4.66 MIL/uL (4.2-6.2); RED CELL DISTRIBUTION WIDTH 13.8 % (9.0-15.0)
[2022-05-10 06:18] LABS: ALANINE AMINOTRANSFERASE 65 U/L (12-78); ALBUMIN 2.2 g/dL (3.4-4.8); ANION GAP 12 (5-15); ASPARTATE AMINOTRANSFERASE 90 U/L (10-37); CALCIUM 8.5 mg/dL (8.4-11.0); CHLORIDE 86 mmol/L (98-107); GLUCOSE 302 mg/dL (70-99); PHOSPHORUS 2.6 mg/dL (2.7-4.5); TOTAL BILIRUBIN 0.9 mg/dL (0.0-1.0); UREA NITROGEN, BLOOD 32 mg/dL (8-21)
[2022-05-10] MEDS: PIPERACILLIN/TAZO 3.375 GM in NS 50 ML IV SCH ×3 (06:57→23:59)
[2022-05-10 08:00] VITALS: BP_SYST 131
[2022-05-10] MEDS ORDERED: traMADol HCL HCL 50 MG TABLET (ULTRAM) PO PRN (08:15)
[2022-05-10 08:17] LABS: THYROID STIMULATING HORMONE 1.08 uIu/mL (0.34-4.82)
[2022-05-10] MEDS ORDERED: PRAVASTATIN SODIUM 20 MG TABLET (PRAVACHOL) PO SCH (09:00)
[2022-05-10] MEDS: PANTOPRAZOLE SODIUM 40 MG/VIAL (PROTONIX) IVP SCH (09:51)
[2022-05-10] MEDS: INSULIN GLARGINE 100 UNITS/ML, 10 ML VIAL SUBCUT SCH ×2 (10:00→21:45)
[2022-05-10 11:28] VITALS: BP_SYST 123
[2022-05-10] MEDS: CYANOCOBALAMIN (VITAMIN B-12) 1,000 MCG TABLET PO SCH (11:49)
[2022-05-10] MEDS: ASPIRIN 81 MG TABLET(ECOTRIN) PO SCH ×2 (11:50→20:46)
[2022-05-10] MEDS: CARVEDILOL 6.25 MG TABLET (COREG) PO SCH ×2 (11:50→20:45)
[2022-05-10] MEDS: RIVAROXABAN 10 MG TABLET PO SCH (11:52)
[2022-05-10] MEDS ORDERED: POTASSIUM CHLORIDE 20 MEQ TAB.PRT.SR PO ONE (13:00)
[2022-05-10 15:30] VITALS: BP_SYST 131
[2022-05-10] MEDS ORDERED: INSULIN REGULAR, HUMAN 100 UNITS/ML, 3 ML VIAL SUBCUT ONE (17:15)
[2022-05-10] MEDS: VANCOMYCIN HCL 1,250 MG in NS 250 ML IV SCH (17:26)
[2022-05-10 22:59] VITALS: BP_SYST 148
[2022-05-11 02:17] VITALS: BP_SYST 130
[2022-05-11] MEDS: INSULIN REGULAR, HUMAN 100 UNITS/ML, 3 ML VIAL (humuLIN R) SUBCUT PRN ×2 (03:57→17:11)
[2022-05-11 07:06] LABS: INR 1.2 (0.80-1.20); PROTHROMBIN TIME 11.7 SECS (9.5-12.5)
[2022-05-11 07:35] LABS: ALANINE AMINOTRANSFERASE 75 U/L (12-78); ALBUMIN 1.9 g/dL (3.4-4.8); ANION GAP 12 (5-15); ASPARTATE AMINOTRANSFERASE 80 U/L (10-37); CALCIUM 8.1 mg/dL (8.4-11.0); UREA NITROGEN, BLOOD 44 mg/dL (8-21)
[2022-05-11] MEDS: PIPERACILLIN/TAZO 3.375 GM in NS 50 ML IV SCH ×3 (07:58→22:21)
[2022-05-11 08:01] VITALS: BP_SYST 118
[2022-05-11 08:06] LABS: BASOPHILS % (AUTO) 0.1 % (0.0-2.0); EOSINOPHILS % (AUTO) 0.2 % (0.0-4.0); HEMOGLOBIN 13.9 g/dL (14.0-18.0); LYMPHOCYTES # (AUTO) 0.7 K/uL (1.0-5.5); LYMPHOCYTES % (AUTO) 5.4 % (20.5-51.5); MEAN CORPUSCULAR HEMOGLOBIN 31 pg (27-31); MEAN CORPUSCULAR HGB CONC 34 % (32-36); MEAN CORPUSCULAR VOLUME 92 fL (79.0-98.0); MONOCYTES # (AUTO) 1.3 K/uL (0.0-1.0); MONOCYTES % (AUTO) 9.8 % (1.7-9.3); NEUTROPHILS # (AUTO) 11.2 K/uL (1.8-7.7); NEUTROPHILS % (AUTO) 84.5 % (40.0-70.0); PLATELET COUNT (AUTO) 127 K/uL (130-430); RED BLOOD CELL COUNT(AUTO) 4.48 MIL/uL (4.2-6.2); RED CELL DISTRIBUTION WIDTH 14.2 % (9.0-15.0); WHITE BLOOD COUNT (AUTO) 13.3 K/uL (4.8-10.8)
[2022-05-11] MEDS: IPRATROPIUM/ALBUTEROL SULFATE 3 ML AMPUL.NEB (DUONEB) INH SCH ×3 (08:15→19:45)
[2022-05-11] MEDS: ASPIRIN 81 MG TABLET(ECOTRIN) PO SCH (08:48)
[2022-05-11 08:49] LABS: CHLORIDE 84 mmol/L (98-107); GLUCOSE 412 mg/dL (70-99)
[2022-05-11] MEDS: CARVEDILOL 6.25 MG TABLET (COREG) PO SCH ×2 (08:49→23:10)
[2022-05-11] MEDS: CYANOCOBALAMIN (VITAMIN B-12) 1,000 MCG TABLET PO SCH (08:50)
[2022-05-11] MEDS: ATORVASTATIN 10 MG TABLET PO SCH (08:50)
[2022-05-11] MEDS: RIVAROXABAN 10 MG TABLET PO SCH (08:52)
[2022-05-11] MEDS ORDERED: INSULIN GLARGINE 100 UNITS/ML, 10 ML VIAL SUBCUT SCH (09:00)
[2022-05-11] MEDS: PANTOPRAZOLE SODIUM 40 MG/VIAL (PROTONIX) IVP SCH (09:11)
[2022-05-11] MEDS ORDERED: LIDOCAINE 1% 10 MG/ML, 20 ML MDV INJ ONE (10:00)
[2022-05-11 11:29] VITALS: BP_SYST 120
[2022-05-11 16:03] VITALS: BP_SYST 122
[2022-05-11] MEDS: VANCOMYCIN HCL 1,250 MG in NS 250 ML IV SCH (16:55)
[2022-05-11 20:57] LABS: BODY FLUID GLUCOSE 80 mg/dL; BODY FLUID TOTAL PROTEIN 2.2 g/dL
[2022-05-11 22:09] LABS: BODY FLUID SOURCE/ TYPE SYNOVIAL; SOURCE/TYPE ,BODY FLUID SYNOVIAL
[2022-05-11 22:10] LABS: APPEARANCE,SPUN,BODY FLUID CLOUDY (CLEAR)
[2022-05-11 22:12] LABS: BODY FLUID TOTAL VOLUME 10 mL; RBC, BODY FLUID 24200 /uL; WBC, BODY FLUID 384000 /uL
[2022-05-11 22:23] LABS: EOSINOPHIL, BODY FLUID 0 %; LYMPHOCYTES, BODY FLUID 6 %; MONOCYTES,BODY FLUID 4 %; NEUTROPHIL, BODY FLUID 90 %
[2022-05-11 22:26] LABS: BODY FLUID CRYSTALS NO CRYSTALS SEEN (None Seen)
[2022-05-11] MEDS ORDERED: INSULIN REGULAR, HUMAN 100 UNITS/ML, 3 ML VIAL SUBCUT ONE (23:45)
[2022-05-12] MEDS ORDERED: INSULIN GLARGINE 100 UNITS/ML, 10 ML VIAL SUBCUT ONE
[2022-05-12] MEDS: IPRATROPIUM/ALBUTEROL SULFATE 3 ML AMPUL.NEB (DUONEB) INH SCH ×4 (01:00→20:05)
[2022-05-12] MEDS: INSULIN REGULAR, HUMAN 100 UNITS/ML, 3 ML VIAL (humuLIN R) SUBCUT PRN ×4 (06:03→21:27)
[2022-05-12] MEDS: PIPERACILLIN/TAZO 3.375 GM in NS 50 ML IV SCH (06:06)
[2022-05-12 08:00] VITALS: BP_SYST 138
[2022-05-12] MEDS: ASPIRIN 81 MG TABLET(ECOTRIN) PO SCH (09:43)
[2022-05-12] MEDS: RIVAROXABAN 10 MG TABLET PO SCH (09:44)
[2022-05-12] MEDS: traMADol HCL HCL 50 MG TABLET (ULTRAM) PO PRN (09:47)
[2022-05-12] MEDS: CARVEDILOL 6.25 MG TABLET (COREG) PO SCH ×2 (09:48→21:21)
[2022-05-12] MEDS: ATORVASTATIN 10 MG TABLET PO SCH (09:48)
[2022-05-12] MEDS: CYANOCOBALAMIN (VITAMIN B-12) 1,000 MCG TABLET PO SCH (09:49)
[2022-05-12] MEDS: INSULIN GLARGINE 100 UNITS/ML, 10 ML VIAL SUBCUT SCH ×2 (09:52→21:35)
[2022-05-12] MEDS: PANTOPRAZOLE SODIUM 40 MG/VIAL (PROTONIX) IVP SCH (09:58)
[2022-05-12 12:00] VITALS: BP_SYST 137
[2022-05-12 16:58] VITALS: BP_SYST 136
[2022-05-12] MEDS: VANCOMYCIN HCL 1,250 MG in NS 250 ML IV SCH (17:49)
[2022-05-12 20:15] VITALS: BP_SYST 147
[2022-05-13] VITALS: BP_SYST 130
[2022-05-13] MEDS: IPRATROPIUM/ALBUTEROL SULFATE 3 ML AMPUL.NEB (DUONEB) INH SCH ×4 (01:30→19:00)
[2022-05-13] MEDS: INSULIN REGULAR, HUMAN 100 UNITS/ML, 3 ML VIAL (humuLIN R) SUBCUT PRN ×4 (06:04→21:17)
[2022-05-13] MEDS: PANTOPRAZOLE SODIUM 40 MG/VIAL (PROTONIX) IVP SCH (08:20)
[2022-05-13] MEDS: CYANOCOBALAMIN (VITAMIN B-12) 1,000 MCG TABLET PO SCH (09:00)
[2022-05-13] MEDS: INSULIN GLARGINE 100 UNITS/ML, 10 ML VIAL SUBCUT SCH ×2 (09:00→21:15)
[2022-05-13] MEDS: ATORVASTATIN 10 MG TABLET PO SCH (09:00)
[2022-05-13] MEDS: CARVEDILOL 6.25 MG TABLET (COREG) PO SCH ×2 (09:00→20:59)
[2022-05-13] MEDS: RIVAROXABAN 10 MG TABLET PO SCH (09:00)
[2022-05-13] MEDS: ASPIRIN 81 MG TABLET(ECOTRIN) PO SCH (09:00)
[2022-05-13] MEDS ORDERED: NS IRRIG SOLN 1000 ML IR ONE (09:33)
[2022-05-13] MEDS ORDERED: WATER FOR IRRIGATION,STERILE 1,000 ML IRRIG.SOLN IR ONE (09:33)
[2022-05-13] MEDS ORDERED: ONDANSETRON HCL 4 MG/2 ML VIAL ONE (09:33)
[2022-05-13] MEDS ORDERED: DEXAMETHASONE SOD PHOSPHATE 4 MG/ML VIAL ONE (09:33)
[2022-05-13] MEDS ORDERED: METOCLOPRAMIDE HCL 10 MG/2 ML VIAL ONE (09:33)
[2022-05-13] MEDS ORDERED: BUPIVACAINE /EPINEPHRINE/PF 0.5% 30 ML VIAL INJ ONE (09:33)
[2022-05-13] MEDS ORDERED: NS 1000 ML IV.SOLN IV ONE (09:33)
[2022-05-13] MEDS ORDERED: NALOXONE HCL 0.4 MG/ML AMP (NARCAN) IVP PRN ×2 (10:30)
[2022-05-13] MEDS ORDERED: ONDANSETRON HCL 4 MG/2 ML VIAL IVP PRN (10:30)
[2022-05-13] MEDS ORDERED: HYDROmorphone 1 MG/ML INJ. CARTRIDGE IVP PRN (10:30)
[2022-05-13] MEDS ORDERED: NACL 0.9% 1,000 ML IV SCH (10:30)
[2022-05-13 11:25] VITALS: BP_SYST 131
[2022-05-13 16:45] VITALS: BP_SYST 148
[2022-05-13 17:01] LABS: ANION GAP 9 (5-15); CALCIUM 7.8 mg/dL (8.4-11.0); CHLORIDE 90 mmol/L (98-107); CREATININE 1.47 mg/dL (0.55-1.30); GLUCOSE 336 mg/dL (70-99); UREA NITROGEN, BLOOD 31 mg/dL (8-21)
[2022-05-13] MEDS: traMADol HCL HCL 50 MG TABLET (ULTRAM) PO PRN (18:02)
[2022-05-13 20:00] VITALS: BP_SYST 146
[2022-05-13] MEDS: MORPHINE 4 MG INJ. 4 MG/ML VIAL IVP PRN (21:03)
[2022-05-14] MEDS: IPRATROPIUM/ALBUTEROL SULFATE 3 ML AMPUL.NEB (DUONEB) INH SCH ×4 (01:00→20:12)
[2022-05-14 01:39] VITALS: BP_SYST 133
[2022-05-14 04:44] LABS: ANION GAP 8 (5-15); CHLORIDE 94 mmol/L (98-107); CREATININE 1.56 mg/dL (0.55-1.30); GLUCOSE 340 mg/dL (70-99); UREA NITROGEN, BLOOD 32 mg/dL (8-21)
[2022-05-14] MEDS: HYDROcodone/ACETAMIN 5-325 MG TAB (NORCO/ VICODIN) PO PRN ×2 (07:05→11:40)
[2022-05-14] MEDS: INSULIN REGULAR, HUMAN 100 UNITS/ML, 3 ML VIAL (humuLIN R) SUBCUT PRN ×4 (07:07→22:05)
[2022-05-14 08:00] VITALS: BP_SYST 100
[2022-05-14] MEDS: PANTOPRAZOLE SODIUM 40 MG/VIAL (PROTONIX) IVP SCH (09:01)
[2022-05-14] MEDS: INSULIN GLARGINE 100 UNITS/ML, 10 ML VIAL SUBCUT SCH ×2 (09:01→22:07)
[2022-05-14] MEDS: ATORVASTATIN 10 MG TABLET PO SCH (09:02)
[2022-05-14] MEDS: RIVAROXABAN 10 MG TABLET PO SCH (09:02)
[2022-05-14] MEDS: CYANOCOBALAMIN (VITAMIN B-12) 1,000 MCG TABLET PO SCH (09:02)
[2022-05-14] MEDS: ASPIRIN 81 MG TABLET(ECOTRIN) PO SCH (09:03)
[2022-05-14] MEDS: CARVEDILOL 6.25 MG TABLET (COREG) PO SCH ×2 (09:04→22:12)
[2022-05-14 11:03] VITALS: BP_SYST 121
[2022-05-14] MEDS: VANCOMYCIN HCL 1,250 MG in NS 250 ML IV SCH (11:24)
[2022-05-14] MEDS: MORPHINE 4 MG INJ. 4 MG/ML VIAL IVP PRN ×2 (13:41→18:31)
[2022-05-14 16:32] VITALS: BP_SYST 131
[2022-05-14 17:56] LABS: VANCOMYCIN,RANDOM 12.5 ug/mL
[2022-05-14 20:08] VITALS: BP_SYST 156
[2022-05-15] MEDS: IPRATROPIUM/ALBUTEROL SULFATE 3 ML AMPUL.NEB (DUONEB) INH SCH ×5 (01:00→23:28)
[2022-05-15 01:18] VITALS: BP_SYST 155
[2022-05-15] MEDS: HYDROcodone/ACETAMIN 5-325 MG TAB (NORCO/ VICODIN) PO PRN (02:20)
[2022-05-15] MEDS: INSULIN REGULAR, HUMAN 100 UNITS/ML, 3 ML VIAL (humuLIN R) SUBCUT PRN ×4 (06:47→22:55)
[2022-05-15 07:32] LABS: BASOPHILS % (AUTO) 0.2 % (0.0-2.0); EOSINOPHILS # (AUTO) 0.1 K/uL (0.0-0.4); EOSINOPHILS % (AUTO) 0.4 % (0.0-4.0); HEMATOCRIT 43.1 % (36-54); HEMOGLOBIN 14.3 g/dL (14.0-18.0); LYMPHOCYTES # (AUTO) 1.1 K/uL (1.0-5.5); LYMPHOCYTES % (AUTO) 6.1 % (20.5-51.5); MEAN CORPUSCULAR HEMOGLOBIN 30 pg (27-31); MEAN CORPUSCULAR HGB CONC 33 % (32-36); MEAN CORPUSCULAR VOLUME 92 fL (79.0-98.0); MONOCYTES # (AUTO) 1.3 K/uL (0.0-1.0); MONOCYTES % (AUTO) 7.7 % (1.7-9.3); NEUTROPHILS # (AUTO) 14.9 K/uL (1.8-7.7); NEUTROPHILS % (AUTO) 85.6 % (40.0-70.0); PLATELET COUNT (AUTO) 199 K/uL (130-430); RED BLOOD CELL COUNT(AUTO) 4.71 MIL/uL (4.2-6.2); RED CELL DISTRIBUTION WIDTH 14.4 % (9.0-15.0); WHITE BLOOD COUNT (AUTO) 17.4 K/uL (4.8-10.8)
[2022-05-15 07:33] LABS: ANION GAP 8 (5-15); CALCIUM 8.3 mg/dL (8.4-11.0); CHLORIDE 89 mmol/L (98-107); CREATININE 1.45 mg/dL (0.55-1.30); GLUCOSE 327 mg/dL (70-99); UREA NITROGEN, BLOOD 36 mg/dL (8-21)
[2022-05-15 08:00] VITALS: BP_SYST 151
[2022-05-15] MEDS: ASPIRIN 81 MG TABLET(ECOTRIN) PO SCH (08:28)
[2022-05-15] MEDS: CYANOCOBALAMIN (VITAMIN B-12) 1,000 MCG TABLET PO SCH (08:28)
[2022-05-15] MEDS: ATORVASTATIN 10 MG TABLET PO SCH (08:29)
[2022-05-15] MEDS: RIVAROXABAN 10 MG TABLET PO SCH (08:31)
[2022-05-15] MEDS: PANTOPRAZOLE SODIUM 40 MG/VIAL (PROTONIX) IVP SCH (08:32)
[2022-05-15] MEDS: CARVEDILOL 6.25 MG TABLET (COREG) PO SCH ×2 (08:32→22:19)
[2022-05-15] MEDS: INSULIN GLARGINE 100 UNITS/ML, 10 ML VIAL SUBCUT SCH ×2 (08:33→22:54)
[2022-05-15] MEDS: MORPHINE 4 MG INJ. 4 MG/ML VIAL IVP PRN (08:40)
[2022-05-15 11:37] VITALS: BP_SYST 138
[2022-05-15] MEDS: VANCOMYCIN HCL 1,250 MG in NS 250 ML IV SCH (11:51)
[2022-05-15 15:29] VITALS: BP_SYST 125
[2022-05-15 19:58] VITALS: BP_SYST 173
[2022-05-16 01:01] VITALS: BP_SYST 143
[2022-05-16] MEDS: HYDROcodone/ACETAMIN 5-325 MG TAB (NORCO/ VICODIN) PO PRN ×4 (01:19→17:37)
[2022-05-16] MEDS: INSULIN REGULAR, HUMAN 100 UNITS/ML, 3 ML VIAL (humuLIN R) SUBCUT PRN ×4 (06:48→23:14)
[2022-05-16 07:14] LABS: ANION GAP 8 (5-15); CALCIUM 8.2 mg/dL (8.4-11.0); CHLORIDE 90 mmol/L (98-107); CREATININE 1.23 mg/dL (0.55-1.30); GLUCOSE 291 mg/dL (70-99); UREA NITROGEN, BLOOD 32 mg/dL (8-21)
[2022-05-16 07:16] LABS: BASOPHILS % (AUTO) 0.3 % (0.0-2.0); EOSINOPHILS % (AUTO) 0.3 % (0.0-4.0); HEMATOCRIT 39.6 % (36-54); HEMOGLOBIN 13.2 g/dL (14.0-18.0); LYMPHOCYTES # (AUTO) 1.1 K/uL (1.0-5.5); LYMPHOCYTES % (AUTO) 6.4 % (20.5-51.5); MEAN CORPUSCULAR HEMOGLOBIN 30 pg (27-31); MEAN CORPUSCULAR HGB CONC 33 % (32-36); MEAN CORPUSCULAR VOLUME 91 fL (79.0-98.0); MONOCYTES # (AUTO) 1.4 K/uL (0.0-1.0); MONOCYTES % (AUTO) 7.7 % (1.7-9.3); NEUTROPHILS # (AUTO) 15.3 K/uL (1.8-7.7); NEUTROPHILS % (AUTO) 85.3 % (40.0-70.0); PLATELET COUNT (AUTO) 193 K/uL (130-430); RED BLOOD CELL COUNT(AUTO) 4.35 MIL/uL (4.2-6.2); RED CELL DISTRIBUTION WIDTH 14.2 % (9.0-15.0); WHITE BLOOD COUNT (AUTO) 17.9 K/uL (4.8-10.8)
[2022-05-16] MEDS: IPRATROPIUM/ALBUTEROL SULFATE 3 ML AMPUL.NEB (DUONEB) INH SCH ×3 (07:22→20:17)
[2022-05-16] MEDS: PANTOPRAZOLE SODIUM 40 MG/VIAL (PROTONIX) IVP SCH (08:16)
[2022-05-16] MEDS: CYANOCOBALAMIN (VITAMIN B-12) 1,000 MCG TABLET PO SCH (08:22)
[2022-05-16] MEDS: ASPIRIN 81 MG TABLET(ECOTRIN) PO SCH (08:23)
[2022-05-16] MEDS: RIVAROXABAN 10 MG TABLET PO SCH (08:24)
[2022-05-16] MEDS: CARVEDILOL 6.25 MG TABLET (COREG) PO SCH ×2 (08:46→21:13)
[2022-05-16] MEDS: INSULIN GLARGINE 100 UNITS/ML, 10 ML VIAL SUBCUT SCH ×2 (09:00→23:16)
[2022-05-16 09:05] VITALS: BP_SYST 156
[2022-05-16 11:25] VITALS: BP_SYST 154
[2022-05-16] MEDS: ATORVASTATIN 10 MG TABLET PO SCH (11:47)
[2022-05-16] MEDS: VANCOMYCIN HCL 1,250 MG in NS 250 ML IV SCH (11:48)
[2022-05-16] MEDS: MORPHINE 4 MG INJ. 4 MG/ML VIAL IVP PRN (11:49)
[2022-05-16 15:30] VITALS: BP_SYST 149
[2022-05-16 20:05] VITALS: BP_SYST 152
[2022-05-16] MEDS: VANCOMYCIN HCL 750 MG in NS 250 ML IV SCH (23:21)
[2022-05-17 00:17] VITALS: BP_SYST 156
[2022-05-17] MEDS: IPRATROPIUM/ALBUTEROL SULFATE 3 ML AMPUL.NEB (DUONEB) INH SCH ×4 (01:21→19:00)
[2022-05-17] MEDS: HYDROcodone/ACETAMIN 5-325 MG TAB (NORCO/ VICODIN) PO PRN ×3 (04:18→20:30)
[2022-05-17] MEDS: INSULIN REGULAR, HUMAN 100 UNITS/ML, 3 ML VIAL (humuLIN R) SUBCUT PRN ×5 (06:38→22:00)
[2022-05-17 06:59] LABS: BASOPHILS % (AUTO) 0.1 % (0.0-2.0); EOSINOPHILS % (AUTO) 0.1 % (0.0-4.0); HEMATOCRIT 37.8 % (36-54); HEMOGLOBIN 12.9 g/dL (14.0-18.0); LYMPHOCYTES # (AUTO) 0.8 K/uL (1.0-5.5); LYMPHOCYTES % (AUTO) 4.1 % (20.5-51.5); MEAN CORPUSCULAR HEMOGLOBIN 31 pg (27-31); MEAN CORPUSCULAR HGB CONC 34 % (32-36); MEAN CORPUSCULAR VOLUME 90 fL (79.0-98.0); MONOCYTES # (AUTO) 1.4 K/uL (0.0-1.0); MONOCYTES % (AUTO) 6.7 % (1.7-9.3); NEUTROPHILS # (AUTO) 18.2 K/uL (1.8-7.7); PLATELET COUNT (AUTO) 209 K/uL (130-430); RED BLOOD CELL COUNT(AUTO) 4.21 MIL/uL (4.2-6.2); RED CELL DISTRIBUTION WIDTH 14.2 % (9.0-15.0); WHITE BLOOD COUNT (AUTO) 20.4 K/uL (4.8-10.8)
[2022-05-17 08:07] LABS: ANION GAP 9 (5-15); C-REACTIVE PROTEIN QUANT 42.7 mg/dL (0-0.5); CALCIUM 7.9 mg/dL (8.4-11.0); CHLORIDE 91 mmol/L (98-107); CREATININE 1.25 mg/dL (0.55-1.30); GLUCOSE 309 mg/dL (70-99); UREA NITROGEN, BLOOD 26 mg/dL (8-21)
[2022-05-17 08:53] LABS: ERYTHROCYTE SEDIMENTATION RATE 104 MM/HR (0-15)
[2022-05-17] MEDS: CYANOCOBALAMIN (VITAMIN B-12) 1,000 MCG TABLET PO SCH (10:12)
[2022-05-17] MEDS: ATORVASTATIN 10 MG TABLET PO SCH (10:13)
[2022-05-17] MEDS: ASPIRIN 81 MG TABLET(ECOTRIN) PO SCH (10:14)
[2022-05-17] MEDS: CARVEDILOL 6.25 MG TABLET (COREG) PO SCH ×2 (10:20→20:29)
[2022-05-17] MEDS: RIVAROXABAN 10 MG TABLET PO SCH (10:22)
[2022-05-17] MEDS: INSULIN GLARGINE 100 UNITS/ML, 10 ML VIAL SUBCUT SCH ×2 (10:23→21:58)
[2022-05-17 11:27] VITALS: BP_SYST 151
[2022-05-17] MEDS: PANTOPRAZOLE SODIUM 40 MG/VIAL (PROTONIX) IVP SCH (13:27)
[2022-05-17] MEDS: VANCOMYCIN HCL 750 MG in NS 250 ML IV SCH (13:28)
[2022-05-17] MEDS: MORPHINE 4 MG INJ. 4 MG/ML VIAL IVP PRN (13:52)
[2022-05-17 15:16] VITALS: BP_SYST 145
[2022-05-17 20:00] VITALS: BP_SYST 148
[2022-05-18 00:08] VITALS: BP_SYST 144
[2022-05-18] MEDS: VANCOMYCIN HCL 750 MG in NS 250 ML IV SCH ×3 (00:25→23:30)
[2022-05-18] MEDS: INSULIN REGULAR, HUMAN 100 UNITS/ML, 3 ML VIAL (humuLIN R) SUBCUT PRN ×4 (06:33→21:43)
[2022-05-18] MEDS: IPRATROPIUM/ALBUTEROL SULFATE 3 ML AMPUL.NEB (DUONEB) INH SCH ×3 (07:00→19:00)
[2022-05-18 07:14] LABS: ANION GAP 8 (5-15); CALCIUM 8.7 mg/dL (8.4-11.0); CHLORIDE 92 mmol/L (98-107); CREATININE 1.28 mg/dL (0.55-1.30); GLUCOSE 278 mg/dL (70-99); UREA NITROGEN, BLOOD 28 mg/dL (8-21)
[2022-05-18 08:00] VITALS: BP_SYST 154
[2022-05-18] MEDS: MORPHINE 4 MG INJ. 4 MG/ML VIAL IVP PRN (08:16)
[2022-05-18 09:12] LABS: BASOPHILS % (AUTO) 0.2 % (0.0-2.0); EOSINOPHILS # (AUTO) 0.1 K/uL (0.0-0.4); EOSINOPHILS % (AUTO) 0.3 % (0.0-4.0); HEMATOCRIT 44.5 % (36-54); HEMOGLOBIN 15.2 g/dL (14.0-18.0); LYMPHOCYTES # (AUTO) 0.9 K/uL (1.0-5.5); LYMPHOCYTES % (AUTO) 3.9 % (20.5-51.5); MEAN CORPUSCULAR HEMOGLOBIN 31 pg (27-31); MEAN CORPUSCULAR HGB CONC 34 % (32-36); MEAN CORPUSCULAR VOLUME 91 fL (79.0-98.0); MONOCYTES # (AUTO) 1.6 K/uL (0.0-1.0); NEUTROPHILS # (AUTO) 19.9 K/uL (1.8-7.7); PLATELET COUNT (AUTO) 279 K/uL (130-430); RED BLOOD CELL COUNT(AUTO) 4.89 MIL/uL (4.2-6.2); RED CELL DISTRIBUTION WIDTH 14.8 % (9.0-15.0); WHITE BLOOD COUNT (AUTO) 22.4 K/uL (4.8-10.8)
[2022-05-18] MEDS: INSULIN GLARGINE 100 UNITS/ML, 10 ML VIAL SUBCUT SCH ×2 (09:43→21:44)
[2022-05-18] MEDS: ATORVASTATIN 10 MG TABLET PO SCH (09:44)
[2022-05-18] MEDS: PANTOPRAZOLE SODIUM 40 MG/VIAL (PROTONIX) IVP SCH (09:44)
[2022-05-18] MEDS: CYANOCOBALAMIN (VITAMIN B-12) 1,000 MCG TABLET PO SCH (09:44)
[2022-05-18] MEDS: ASPIRIN 81 MG TABLET(ECOTRIN) PO SCH (09:45)
[2022-05-18] MEDS: RIVAROXABAN 10 MG TABLET PO SCH (09:45)
[2022-05-18] MEDS: CARVEDILOL 6.25 MG TABLET (COREG) PO SCH ×2 (09:46→21:29)
[2022-05-18 11:29] VITALS: BP_SYST 141
[2022-05-18 12:36] LABS: NEUTROPHILS % (AUTO) 88.6 % (40.0-70.0)
[2022-05-18] MEDS: HYDROcodone/ACETAMIN 5-325 MG TAB (NORCO/ VICODIN) PO PRN (13:15)
[2022-05-18 15:19] VITALS: BP_SYST 137
[2022-05-18 20:30] VITALS: BP_SYST 154
[2022-05-18] MEDS ORDERED: FUROSEMIDE 40 MG/4 ML VIAL IVP ONE (21:45)
[2022-05-19] MEDS: IPRATROPIUM/ALBUTEROL SULFATE 3 ML AMPUL.NEB (DUONEB) INH SCH ×4 (00:46→19:40)
[2022-05-19 02:01] VITALS: BP_SYST 149
[2022-05-19] MEDS: INSULIN REGULAR, HUMAN 100 UNITS/ML, 3 ML VIAL (humuLIN R) SUBCUT PRN ×4 (06:20→22:08)
[2022-05-19 08:00] VITALS: BP_SYST 146
[2022-05-19] MEDS: PANTOPRAZOLE SODIUM 40 MG/VIAL (PROTONIX) IVP SCH (09:30)
[2022-05-19] MEDS: INSULIN GLARGINE 100 UNITS/ML, 10 ML VIAL SUBCUT SCH ×2 (09:43→22:06)
[2022-05-19] MEDS: CYANOCOBALAMIN (VITAMIN B-12) 1,000 MCG TABLET PO SCH (09:44)
[2022-05-19] MEDS: ATORVASTATIN 10 MG TABLET PO SCH (09:45)
[2022-05-19] MEDS: ASPIRIN 81 MG TABLET(ECOTRIN) PO SCH (09:45)
[2022-05-19] MEDS: RIVAROXABAN 10 MG TABLET PO SCH (09:46)
[2022-05-19] MEDS: CARVEDILOL 6.25 MG TABLET (COREG) PO SCH ×2 (09:47→21:59)
[2022-05-19 10:37] LABS: ALANINE AMINOTRANSFERASE 39 U/L (12-78); ALBUMIN 1.3 g/dL (3.4-4.8); ANION GAP 6 (5-15); ASPARTATE AMINOTRANSFERASE 51 U/L (10-37); CALCIUM 8.6 mg/dL (8.4-11.0); CHLORIDE 89 mmol/L (98-107); CREATININE 1.26 mg/dL (0.55-1.30); GLUCOSE 295 mg/dL (70-99); TOTAL BILIRUBIN 1.2 mg/dL (0.0-1.0); UREA NITROGEN, BLOOD 30 mg/dL (8-21)
[2022-05-19] MEDS: VANCOMYCIN HCL 750 MG in NS 250 ML IV SCH ×2 (12:00→22:09)
[2022-05-19 12:10] VITALS: BP_SYST 125
[2022-05-19 15:06] VITALS: BP_SYST 158
[2022-05-19] MEDS: CEFTAROLINE FOSAMIL ACETATE 600 MG in NS 250 ML IV SCH (17:03)
[2022-05-19 23:12] VITALS: BP_SYST 144
[2022-05-20 00:12] VITALS: BP_SYST 143
[2022-05-20] MEDS: IPRATROPIUM/ALBUTEROL SULFATE 3 ML AMPUL.NEB (DUONEB) INH SCH ×4 (01:00→19:38)
[2022-05-20 04:32] VITALS: BP_SYST 139
[2022-05-20] MEDS: CEFTAROLINE FOSAMIL ACETATE 600 MG in NS 250 ML IV SCH ×2 (05:53→17:39)
[2022-05-20] MEDS: INSULIN REGULAR, HUMAN 100 UNITS/ML, 3 ML VIAL (humuLIN R) SUBCUT PRN ×3 (06:15→17:40)
[2022-05-20 06:32] LABS: BASOPHILS % (AUTO) 0.2 % (0.0-2.0); EOSINOPHILS % (AUTO) 0.2 % (0.0-4.0); HEMATOCRIT 38.5 % (36-54); LYMPHOCYTES % (AUTO) 5.8 % (20.5-51.5); MEAN CORPUSCULAR HEMOGLOBIN 30 pg (27-31); MEAN CORPUSCULAR HGB CONC 34 % (32-36); MEAN CORPUSCULAR VOLUME 90 fL (79.0-98.0); MONOCYTES # (AUTO) 1.4 K/uL (0.0-1.0); MONOCYTES % (AUTO) 8.3 % (1.7-9.3); NEUTROPHILS # (AUTO) 14.6 K/uL (1.8-7.7); NEUTROPHILS % (AUTO) 85.5 % (40.0-70.0); PLATELET COUNT (AUTO) 275 K/uL (130-430); RED BLOOD CELL COUNT(AUTO) 4.29 MIL/uL (4.2-6.2); RED CELL DISTRIBUTION WIDTH 14.5 % (9.0-15.0); WHITE BLOOD COUNT (AUTO) 17.1 K/uL (4.8-10.8)
[2022-05-20 06:54] LABS: ALANINE AMINOTRANSFERASE 46 U/L (12-78); ALBUMIN 1.1 g/dL (3.4-4.8); ANION GAP 5 (5-15); ASPARTATE AMINOTRANSFERASE 53 U/L (10-37); CALCIUM 8.3 mg/dL (8.4-11.0); CHLORIDE 93 mmol/L (98-107); CREATININE 1.16 mg/dL (0.55-1.30); GLUCOSE 319 mg/dL (70-99); UREA NITROGEN, BLOOD 29 mg/dL (8-21)
[2022-05-20 08:46] VITALS: BP_SYST 154
[2022-05-20] MEDS ORDERED: FUROSEMIDE 40 MG TABLET PO SCH (09:00)
[2022-05-20] MEDS: RIVAROXABAN 10 MG TABLET PO SCH (09:00)
[2022-05-20] MEDS: ATORVASTATIN 10 MG TABLET PO SCH (10:43)
[2022-05-20] MEDS: CARVEDILOL 6.25 MG TABLET (COREG) PO SCH (10:44)
[2022-05-20] MEDS: CYANOCOBALAMIN (VITAMIN B-12) 1,000 MCG TABLET PO SCH (10:44)
[2022-05-20] MEDS: ASPIRIN 81 MG TABLET(ECOTRIN) PO SCH (10:46)
[2022-05-20] MEDS: PANTOPRAZOLE SODIUM 40 MG/VIAL (PROTONIX) IVP SCH (10:47)
[2022-05-20] MEDS: INSULIN GLARGINE 100 UNITS/ML, 10 ML VIAL SUBCUT SCH (10:51)
[2022-05-20] MEDS: VANCOMYCIN HCL 750 MG in NS 250 ML IV SCH (11:14)
[2022-05-20 14:33] VITALS: BP_SYST 141
[2022-05-20 16:00] VITALS: BP_SYST 145
[2022-05-20] MEDS: MORPHINE 4 MG INJ. 4 MG/ML VIAL IVP PRN (20:40)
[2022-05-20 20:51] VITALS: BP_SYST 140
== END 2022-05-20 23:31 | disposition short-term general hospital (02) | DRG 559 ==
LOC: SED 10:29 → STU 12:49 → SMU 05-14 14:22
PROVIDERS: ADMIT Internal Medicine; ATTEND Internal Medicine
PROC: 0S9C4ZZ Drainage of Right Knee Joint, Percutaneous Endoscopic Approach (ICD-10-PCS; 2022-05-13)
PROC: 0JDN3ZZ Extraction of Right Lower Leg Subcutaneous Tissue and Fascia, Percutaneous Approach (ICD-10-PCS; principal; 2022-05-13 09:33)
DX: T84.53XA Infection and inflammatory reaction due to internal right knee prosthesis, initial encounter (principal); A41.02 Sepsis due to Methicillin resistant Staphylococcus aureus; E43 Unspecified severe protein-calorie malnutrition; J44.1 Chronic obstructive pulmonary disease with (acute) exacerbation; M00.061 Staphylococcal arthritis, right knee; I25.10 Atherosclerotic heart disease of native coronary artery without angina pectoris; F41.9 Anxiety disorder, unspecified; E78.5 Hyperlipidemia, unspecified; F17.200 Nicotine dependence, unspecified, uncomplicated; E66.01 Morbid (severe) obesity due to excess calories; Z96.651 Presence of right artificial knee joint; R09.02 Hypoxemia; S89.91XA Unspecified injury of right lower leg, initial encounter; W18.39XA Other fall on same level, initial encounter; Z20.822 Contact with and (suspected) exposure to COVID-19; I12.9 Hypertensive chronic kidney disease with stage 1 through stage 4 chronic kidney disease, or unspecified chronic kidney disease; E11.22 Type 2 diabetes mellitus with diabetic chronic kidney disease; N18.9 Chronic kidney disease, unspecified; Z88.8 Allergy status to other drugs, medicaments and biological substances; Z79.899 Other long term (current) drug therapy; Z79.82 Long term (current) use of aspirin; I25.2 Old myocardial infarction; Z79.4 Long term (current) use of insulin; Z95.5 Presence of coronary angioplasty implant and graft; Z86.718 Personal history of other venous thrombosis and embolism; Z86.711 Personal history of pulmonary embolism; Z79.01 Long term (current) use of anticoagulants; Y93.89 Activity, other specified; Y99.8 Other external cause status; Y92.009 Unspecified place in unspecified non-institutional (private) residence as the place of occurrence of the external cause; Z68.35 Body mass index [BMI] 35.0-35.9, adult
CPT/HCPCS: 36415; 71045; 71250-TC; 73560-TC; 76376; 76770; 80048; 80053; 80202; 81000; 82947; 82962; 83037; 83605; 83735; 83880; 84100; 84157; 84443; 84484; 85007; 85025; 85027; 85610-TC; 85651-TC; 86140; 87040; 87070-TC; 87081; 87101; 87116; 87186-TC; 89051-TC; 89060-TC; 93005; 93306; 94640; 94760; 96372; 97110-GP; 97112-GP; 97530-GP; 99291; 99292; C9113; G0378; J0712; J1100; J1815; J1940; J2001; J2270; J2405; J2543; J2765; J3370; J3490; J7030; J7050